=== PATIENT | female | born 1940 | race African-American/Black ===

== ENCOUNTER 2018-11-13 06:54 | Day surgery (SDC) | payer MEDICAID, MEDICARE ==
[~2018-11-13] VITALS: Ht 175.3 cm; Wt 126.6 kg
[~2018-11-13 06:54] MED LIST: ASPI-1159 PO; GLIP5TAB12 PO; HYDR25TA PO; LOSA50TA20 PO; SIMV20TA6 PO
[2018-11-13] MEDS ORDERED: PHENYLEPHRINE HCL 10% OPHTH DROPS 5ML RIGHTEYE ONE (07:30)
[2018-11-13] MEDS ORDERED: CYCLOPENTOLATE HCL 1% OPHTH DROPS 2ML RIGHTEYE ONE (07:30)
[2018-11-13] MEDS ORDERED: TROPICAMIDE 1% OPHTH DROPS 15ML RIGHTEYE ONE (07:30)
[2018-11-13] MEDS ORDERED: NEO/POLYMYX B SULF/DEXAMETH OPHTH OINT 3.5GM ONE (09:00)
[2018-11-13] MEDS ORDERED: CIPROFLOXACIN 0.3% OPHTH SOLN 2.5ML ONE (09:00)
[2018-11-13] MEDS ORDERED: PHENYLEPHRINE HCL 2.5% OPHTH DROPS 2ML ONE (09:00)
[2018-11-13] MEDS ORDERED: PREDNISOLONE ACETATE 1% OPHTH DROPS 1ML ONE (09:00)
[2018-11-13] MEDS ORDERED: BALANCED SALT IRRIG SOLN 15ML ONE (09:00)
[2018-11-13] MEDS ORDERED: INSULIN REGULAR (HUMULIN R) 300UNITS/3ML SUBCUT NR (09:00)
[2018-11-13] MEDS ORDERED: TETRACAINE 0.5% OPHTH DROPS 4ML ONE (09:00)
[2018-11-13] MEDS ORDERED: SODIUM CHLORIDE 0.9% 1,000 ML IV SCH (09:15)
[2018-11-13] MEDS ORDERED: INSULIN REGULAR (HUMULIN R) 300UNITS/3ML ONE (09:27)
[2018-11-13] MEDS ORDERED: HYALURONATE SODIUM 14 MG/ML 0.85ML SYRINGE IO ONE (09:28)
[2018-11-13] MEDS ORDERED: BALANCED SALT IRRIG SOLN COMB1 500ML OP ONE (09:30)
[2018-11-13] MEDS ORDERED: MIDAZOLAM HCL 2 MG/2 ML VIAL ONE (09:36)
[2018-11-13] MEDS ORDERED: INSU100I28 SQ (10:22)
[2018-11-13] MEDS ORDERED: LABETALOL HCL 20MG/4ML CARPUJECT IV PRN (10:30)
[2018-11-13] MEDS ORDERED: ONDANSETRON HCL 4MG/2ML INJ IV PRN (10:30)
== END 2018-11-13 12:10 | disposition home or self-care (01) ==
LOC: OR 06:54
PROVIDERS: ATTEND Ophthalmology
DX: E11.36 Type 2 diabetes mellitus with diabetic cataract (principal); H25.89 Other age-related cataract; I10 Essential (primary) hypertension; K21.9 Gastro-esophageal reflux disease without esophagitis; E78.00 Pure hypercholesterolemia, unspecified; Z90.710 Acquired absence of both cervix and uterus
CPT/HCPCS: 66984; 82962; J2250; J3490; V2632; J1815